=== PATIENT | female | born 1985 | race African-American/Black ===

== ENCOUNTER 2017-11-12 05:54 | Inpatient (IN) | payer BC ==
[2017-11-12] MEDS ORDERED: Buffered Lidocaine 0.9% SYRIN* 5 ML/SYR SYRINGE INTRADERM ONE (06:00)
[2017-11-12] MEDS ORDERED: Famotidine IV* 10 MG/ML 2 ML (20 mg) IV ONE (06:00)
[2017-11-12] MEDS ORDERED: Sodium Citrate/Citric Acid* 15 ML UDC PO ONE (06:00)
[2017-11-12] MEDS ORDERED: ceFAZolin 2 GM PREMIX (*) 2 GM/50 ML BAG IVPB ONE (06:59)
[2017-11-12] MEDS ORDERED: Ondansetron INJ* 2 MG/ML VIAL ONE (07:39)
[2017-11-12] MEDS ORDERED: Phenylephrine IV* 40 MCG/ML 10 ML SYRINGE ONE ×2 (07:39→08:33)
[2017-11-12] MEDS ORDERED: Dexamethasone IV* 4 MG/ML 1 ML (4 MG) ONE (07:39)
[2017-11-12] MEDS ORDERED: OXYTOCIN* 10 UNITS/ML 1 ML VIAL ONE (07:39)
[2017-11-12] MEDS ORDERED: Morphine PF AMP (0.5MG/ML)* 5 MG/10 ML AMP ONE (07:55)
[2017-11-12] MEDS ORDERED: fentaNYL* 50 MCG/ML 2 ML VIAL (100 MCG VIAL) IV PRN (08:37)
[2017-11-12] MEDS ORDERED: Nalbuphine* 20 MG/ML 1 ML VIAL IV PRN ×2 (08:37)
[2017-11-12] MEDS ORDERED: DiMENhydriNATE IV* 50 MG/ML VIAL IV PUSH PRN (08:37)
[2017-11-12] MEDS ORDERED: oxyCODONE/Acetamin 5/325 MG* TAB PO PRN ×2 (08:37)
[2017-11-12] MEDS ORDERED: Ondansetron INJ* 2 MG/ML VIAL IV PRN (08:37)
[2017-11-12] MEDS ORDERED: Ketorolac INJ* 30 MG/ML 1 ML VIAL IV PRN (08:37)
[2017-11-12] MEDS ORDERED: Naloxone* 0.4 MG/ML 1 ML VIAL IV PRN (08:37)
[2017-11-12] MEDS ORDERED: Scopolamine 1.5 mg* PATCH TRANSDERM PRN (08:37)
[2017-11-12] MEDS ORDERED: Ibuprofen TAB* 600 MG PO SCH (09:00)
[2017-11-12] MEDS ORDERED: Oxytocin in LR* 20 UNITS/1,000 ML BAG IVPB ONE (10:05)
[2017-11-12] MEDS ORDERED: Zolpidem TAB* 5 MG PO PRN (10:45)
[2017-11-12] MEDS ORDERED: Dibucaine 1% 28.35 GM TUBE PR PRN (10:45)
[2017-11-12] MEDS ORDERED: Witch Hazel PAD* JAR TOPICAL PRN (10:45)
[2017-11-12] MEDS ORDERED: Glycerin ADULT SUPP PR PRN (10:45)
[2017-11-12] MEDS ORDERED: Ibuprofen TAB* 600 MG ONE (11:03)
[2017-11-12] MEDS: Docusate CAP* 100 MG PO SCH ×2 (15:57→20:59)
[2017-11-12] MEDS: Simethicone TAB* 80 MG TAB.CHEW PO SCH ×3 (15:57→20:59)
[2017-11-12] MEDS: Ibuprofen TAB* 600 MG PO SCH ×2 (16:56→23:12)
[2017-11-13] MEDS ORDERED: oxyCODONE/Acetamin 5/325 MG* TAB PO PRN ×2
[2017-11-13] MEDS ORDERED: Acetaminophen TAB* 325 MG PO PRN
[2017-11-13] MEDS: Ibuprofen TAB* 600 MG PO PRN ×3 (05:28→20:32)
[2017-11-13 06:29] LABS: Hematocrit 30 % (35-47); Hemoglobin 9.9 g/dl (12.0-16.0); Mean Corpuscular HGB Conc 33 g/dl (31-36); Mean Corpuscular Hemoglobin 27 pg (27-31); Mean Corpuscular Volume 82 fL (80-97); Mean Platelet Volume 9 um3 (7.4-10.4); Red Cell Distribution Width 15 % (10.5-15); White Blood Count 15.8 10^3/ul (3.5-10.8)
[2017-11-13 06:31] LABS: Comments Flag Yes
[2017-11-13 06:32] LABS: Add Diff/Slide Review? Slide Review Added
[2017-11-13] MEDS: Simethicone TAB* 80 MG TAB.CHEW PO SCH ×3 (09:25→20:33)
[2017-11-13] MEDS: Docusate CAP* 100 MG PO SCH ×3 (09:25→20:32)
[2017-11-13] MEDS: Ferrous Gluconate TAB* 324 MG TAB PO SCH ×2 (09:25→20:33)
--- NOTE | 2017-11-13 13:24 | OP ---
DATE OF OPERATION: 11/12/17 - ROOM #[facility]-116 DATE OF : 85 SURGEON: Mirian No MD. HYDROGEN PLANT OPERATOR: Dr. Rubio. ANESTHESIOLOGIST: Markos Wall MD ANESTHESIA: Spinal PRE-OP DIAGNOSIS: Intrauterine gestation at 39 and 1 week gestational age. Large lower uterine segment fibroid. POST-OP DIAGNOSIS: Intrauterine gestation at 39 and 1 week gestational age. Large lower uterine segment fibroid. OPERATIVE PROCEDURE: Primary low transverse section. ESTIMATED BLOOD LOSS: 600 mL. FLUIDS: Crystalloid. FINDINGS: Female . Apgars 9 and 10, weight 7 pounds 4 ounces. Normal appearing placenta. Uterus normal other than 1 very large, more than 10 cm pedunculated fundal fibroid and another fibroid in the right posterior lower uterine segment approximately 8 cm. COMPLICATIONS: None. COUNTS: All correct. DESCRIPTION OF PROCEDURE: After informed consent was signed, the patient was taken to the operating room where she was given spinal anesthesia that was found to be adequate. She was prepped and draped in the supine position with a leftward tilt. Time-out was performed. A Pfannenstiel skin incision was made with the scalpel and carried down to the underlying layer of fascia. The fascia was incised on either side of the midline and the fascial incision extended laterally with a combination of blunt and sharp dissection. The inferior edge of the fascial incision was grasped with Roxanne clamps, tented up and dissected down bluntly. Then the superior edge of the fascial incision was grasped with Roxanne clamps, tented up and dissected down with a combination of sharp and blunt dissection. The rectus muscles were in the midline and the peritoneum was entered bluntly. The peritoneal incision was extended laterally with blunt pressure. The uterus was found to be rotated towards the patient's left side because of the large right lower segment fibroid. The uterus was manually rotated back towards the middle, and then a transverse incision was made in the lower uterine segment taking care to avoid getting close to the fibroid. The incision was extended superiorly and inferiorly with blunt pressure. The 's head was delivered with fundal pressure followed by the shoulders and the rest of the body. The cord was clamped x2 and cut and the baby was handed to the transit operator. Cord blood was collected. The placenta was manually removed and the uterus was cleared of clots and debris. The uterine incision was then closed with an 0-Vicryl in a running locked fashion with the second layer of suture imbricating the first. Good hemostasis was noted. The abdomen was then irrigated and exploration of the uterus revealed the previously mentioned fibroids. The incision was inspected and once again good hemostasis was noted. The peritoneum was then closed with 3-0 Chromic in a running unlocked fashion. The fascia was then closed with 0- Vicryl in a running unlocked fashion. The skin was closed with 4-0 Monocryl in a running subcuticular fashion. Mastisol and Steri-Strips were placed. The incision was cleaned and dressed. The patient was moved to the stretcher and taken to the recovery room in stable condition. [id number] #: [id number] [place]
[2017-11-14] MEDS: Ibuprofen TAB* 600 MG PO PRN ×2 (05:09→11:47)
[2017-11-14] MEDS: Simethicone TAB* 80 MG TAB.CHEW PO SCH (08:02)
[2017-11-14] MEDS: Docusate CAP* 100 MG PO SCH (08:02)
[2017-11-14] MEDS: Ferrous Gluconate TAB* 324 MG TAB PO SCH (08:02)
--- NOTE | 2017-11-14 09:13 | PTEDU ---
Patient Name: JENNIFER BROWNING KATEDIPAKJENNIFER PATINO selected video: Never Ever Shake a Baby to view on 11/14/2017 at 9:12:56 AM from [id number]
[2017-11-14 09:35] VITALS: BP 113/65
--- NOTE | 2017-11-14 12:20 | PTEDU ---
Patient Name: JENNIFER BROWNING JENNIFER BROWNING selected video: Follow Me Mum: The [place] to Successful to view o n 11/14/2017 at 12:19:49 PM from [id number]
[2017-11-14] MEDS ORDERED: Tetan/Diph/Pertus SYR(Tdap)* 0.5 ML SYR(BOOSTRIX) use SYR IM ONE ×2 (12:24→12:39)
[2017-11-15] MEDS ORDERED: Scopolamine PATCH Remove* 1 NOTE MISC PATCH OFF PRN
== END 2017-11-14 13:52 | disposition home or self-care (01) | DRG 540 ==
LOC: MCHOB 05:54
PROVIDERS: ADMIT Obstetrics & Gynecology; ATTEND Obstetrics & Gynecology
PROC: 10D00Z1 Extraction of Products of Conception, Low, Open Approach (ICD-10-PCS; principal; 2017-11-12 07:45)
DX: O34.13 Maternal care for benign tumor of corpus uteri, third trimester (principal); D25.1 Intramural leiomyoma of uterus; O90.81 Anemia of the puerperium; D64.9 Anemia, unspecified; Z3A.39 39 weeks gestation of pregnancy; Z37.0 Single live birth
CPT/HCPCS: 36415; 85025; 90715; A9270-GY; J0690; J1100; J2405; J2590